=== PATIENT | female | born 1950 | race Caucasian/White ===

== ENCOUNTER 2017-07-23 17:22 | Inpatient (IN) ==
[2017-07-23 17:58] LABS: Bilirubin,Urine Negative (Negative); Blood,Urine Moderate (Negative); Clarity,Urine Clear (Clear); Color,Urine Yellow (Yellow); Glucose,Urine (UA) Normal (Normal); Ketones,Urine Negative (Negative); Leukocyte Esterase,Urine Small (Negative); Nitrite,Urine Negative (Negative); PH,Urine 6.5 pH Units (5.0-8.0); Protein,Urine Negative (Neg-Trace); Specific Gravity,Urine 1.012 (1.010-1.025); Urobilinogen,Urine Normal (Normal)
[2017-07-23 18:00] LABS: Bacteria,Urine None Seen per hpf (None-Few); Hyaline Casts,Urine None Seen per lpf (None-Few); Squamous Epithelial Cell,Urine Many per lpf (None-Few)
[2017-07-23 19:05] LABS: Basophils % 0.1 %; Hematocrit 38.5 % (35.3-44.9); Hemoglobin 13.5 g/dL (11.5-15.4); Immature Granulocytes % 0.5 % (0-4); Immature Platelets 5.4 % (1.1-6.1); Lymphocytes # 1.1 K/mcL (0.6-4.6); Lymphocytes % 7.4 %; Mean Corpuscular HGB Conc 35.1 g/dL (31.6-35.5); Mean Corpuscular Hemoglobin 30.1 pg (28.0-33.3); Mean Corpuscular Volume 85.9 fL (83.0-100.0); Mean Platelet Volume 10.8 fL (9.4-12.4); Monocytes # 0.8 K/mcL (0.0-1.3); Monocytes % 5.1 %; Neutrophils # 13.2 K/mcL (1.6-8.9); Platelet Count 170 K/mcL (140-400); Red Blood Count 4.48 M/mcL (3.82-4.97); Segmented Neutrophils % 86.9 %
[2017-07-23 19:18] LABS: Alanine Aminotransferase 19 Units/L (7-52); Albumin 3.9 g/dL (3.5-5.7); Albumin/Globulin Ratio 1.4 (1.1-2.2); Alkaline Phosphatase 73 Units/L (34-104); Aspartate Amino Transferase 14 Units/L (13-39); BUN/Creatinine Ratio 17 (6-26); Bilirubin,Direct 0.3 mg/dL (0.0-0.2); Bilirubin,Indirect 1.6 mg/dL (0.0-1.2); Bilirubin,Total 1.9 mg/dL (0.3-1.0); Blood Urea Nitrogen 13 mg/dL (8-23); Calcium 9.2 mg/dL (8.6-10.3); Carbon Dioxide 24 mEq/L (23-29); Chloride 98 mEq/L (98-107); Globulin 2.8 g/dL (2.4-3.5); Glucose 120 mg/dL (70-105); Lipase 3 Units/L (11-82); Osmolality,Calculated 277 (280-300); Potassium 3.7 mEq/L (3.5-5.1); Sodium 133 mEq/L (136-145); Total Protein 6.7 g/dL (6.4-8.9); eGFR For African Americans > 60 (> 60); eGFR For Non-African Americans > 60 (> 60)
--- NOTE | 2017-07-23 20:12 | Emergency Department Note ---
Disposition Clinical Impression: Diverticulitis, Perforated diverticulum, Hyperbilirubinemia, Pulmonary nodule Disposition: Admitted As Inpatient Condition: Fair Referrals: Conrado Beck DO [Primary Care Provider] - Forms: ED Satisfaction Letter, Work/School Release General Adult HPI - General Chief complaint: ED Abdominal Pain Stated complaint: abd pain, fever Time Seen by Provider: 07/23/17 19:57 Source: patient Limitations: no limitations Nursing Notes Reviewed: Yes Vital Signs Reviewed: Yes - History of Present Illness HPI Narrative: 66 y/o female w/ PMH of HTN, HLD. Reports 24 hours of suprapubic pain and fever. Admits to increased urinary frequency. Has not had an appetite today. No N/V. Last BM was yesterday and was normal. She reports taking tylenol earlier today which helped quite a bit. She went to an urgent care who sent her here. Movement makes the pain worse. Better after tylenol/rest. Pain was relatively sudden in onset. No flank pain. Radiation: non-radiation Pain Scale: 2 Consistency: constant Associated symptoms: Reports: denies other symptoms Treatments Prior to Arrival: NSAID - Related Data Allergies Allergy/AdvReac Type Severity Reaction Status Date / Time No Known Allergies Allergy Verified 07/23/17 17:39 All systems ED: reviewed and negative except as stated. Constitutional: Reports: fever ENT ED: Denies: throat pain Cardiovascular: Denies: chest pain Respiratory: Denies: cough, dyspnea Gastrointestinal: Reports: abdominal pain. Denies: nausea, vomiting, diarrhea Genitourinary: Reports: frequency Musculoskeletal: Denies: back pain Integumentary: Denies: rash Past Medical History - Past Medical History Medical history: Reports: hyperlipidemia, hypertension Psychiatric history: Reports: no psych history - Social History Smoking Status: Never smoker Smokeless Tobacco Status: No Alcohol use: Reports: none Drug use: Reports: none Physical Exam - General Limitations: no limitations General appearance: alert, in no apparent distress - Head Head exam: atraumatic - Eye Eye exam: Present: normal appearance, PERRL - ENT ENT exam: normal exam, normal oropharynx - Neck Neck exam: Present: normal inspection - Chest Chest inspection: Present: normal inspection - Respiratory Respiratory exam: Present: normal lung sounds bilaterally. Absent: respiratory distress - Cardiovascular Cardiovascular exam: Present: normal rhythm, tachycardia - Abdominal Exam Abdominal exam: Present: soft, tenderness (Diffuse tenderness. Worse in suprapubic area. No rebound.) - Extremities Exam Extremities exam: Present: normal inspection - Neurological Exam Neurological exam: Present: alert, oriented X3 - Psychiatric Psychiatric exam: Present: normal affect, normal mood Course Course Narrative: Due to abdominal pain and fever w/ no clear source, will do CT scan. Will give fluids due to tachycardia. She is very well appearing and in no distress. She walks around the room without significant pain or difficulty. She refuses any need for analgesics. No significant RUQ pain. Microperforation of sigmoid diverticulitis seen on CT scan. Starting antibiotics. Spoke with Dr Lozoya who accepted the patient to her service. Vital Signs Temperature 100.6 F H 07/23/17 17:36 Pulse Rate 108 07/23/17 17:36 Respiratory Rate 18 07/23/17 17:36 Blood Pressure 116/77 07/23/17 17:36 O2 Sat by Pulse Oximetry 95 07/23/17 17:36 Temperature 100.6 F H 07/23/17 17:36 Pulse Rate 95 07/23/17 20:43 Respiratory Rate 16 07/23/17 20:43 Blood Pressure 108/65 07/23/17 20:43 O2 Sat by Pulse Oximetry 95 07/23/17 17:36 Oxygen Delivery Oxygen Delivery Room Air Medical Decision Making - Medical Records Medical records reviewed: Yes I reviewed the patient's medical records. - Lab Data Lab results reviewed: Yes I reviewed the patient's lab results. Result diagrams: 07/23/17 18:57 07/23/17 18:57 Lab Results 07/23/17 07/23/17 07/23/17 Range/Units 17:49 18:57 18:57 WBC 15.2 H (4.3-11.1) K/mcL RBC 4.48 (3.82-4.97) M/mcL Hgb 13.5 (11.5-15.4) g/dL Hct 38.5 (35.3-44.9) % MCV 85.9 (83.0-100.0) fL MCH 30.1 (28.0-33.3) pg MCHC 35.1 (31.6-35.5) g/dL RDW 13.0 (11.5-14.5) % Plt Count 170 (140-400) K/mcL MPV 10.8 (9.4-12.4) fL Immature Gran % 0.5 (0-4) % Seg Neutrophils % 86.9 % Lymphocytes % 7.4 % Monocytes % 5.1 % Eosinophils % 0.0 % Basophils % 0.1 % Neutrophils # 13.2 H (1.6-8.9) K/mcL Lymphocytes # 1.1 (0.6-4.6) K/mcL Monocytes # 0.8 (0.0-1.3) K/mcL Eosinophils # 0.0 (0.0-0.6) K/mcL Basophils # 0.0 (0.0-0.2) K/mcL Immature Plt Fraction 5.4 (1.1-6.1) % Sodium 133 L (136-145) mEq/L Potassium 3.7 (3.5-5.1) mEq/L Chloride 98 (98-107) mEq/L Carbon Dioxide 24 (23-29) mEq/L BUN 13 (8-23) mg/dL Creatinine 0.75 (0.60-1.20) mg/dL Est GFR ( Amer) > 60 (> 60) Est GFR (Non-Af Amer) > 60 (> 60) BUN/Creatinine Ratio 17 (6-26) Glucose 120 H (70-105) mg/dL Calculated Osmolality 277 L (280-300) Calcium 9.2 (8.6-10.3) mg/dL Total Bilirubin 1.9 H (0.3-1.0) mg/dL Direct Bilirubin 0.3 H (0.0-0.2) mg/dL Indirect Bilirubin 1.6 H (0.0-1.2) mg/dL AST 14 (13-39) Units/L ALT 19 (7-52) Units/L Alkaline Phosphatase 73 (34-104) Units/L Serum Total Protein 6.7 (6.4-8.9) g/dL Albumin 3.9 (3.5-5.7) g/dL Globulin 2.8 (2.4-3.5) g/dL Albumin/Globulin Ratio 1.4 (1.1-2.2) Lipase 3 L (11-82) Units/L Urine Color Yellow (Yellow) Urine Clarity Clear (Clear) Urine pH 6.5 (5.0-8.0) pH Units Ur Specific [place] 1.012 (1.010-1.025) Urine Protein Negative (Neg-Trace) mg/dL Urine Glucose (UA) Normal (Normal) mg/dL Urine Ketones Negative (Negative) mg/dL Urine Blood Moderate H (Negative) Urine Nitrite Negative (Negative) Urine Bilirubin Negative (Negative) Urine Urobilinogen Normal (Normal) mg/dL Ur Leukocyte Esterase Small H (Negative) Urine Microscopic RBC 5-15 H (0-3) per hpf Urine Microscopic WBC 5-15 H (0-3) per hpf Ur Squamous Epith Cells Many H (None-Few) per lpf Urine Bacteria None Seen (None-Few) per hpf Hyaline Casts None Seen (None-Few) per lpf Ur Culture Indicated? NO. (NO) - Radiology Data Radiology results reviewed: Yes I reviewed the patient's radiology results.
[2017-07-23] MEDS ORDERED: 0.9 % Sodium Chloride 1,000 ML IVC ONE (20:15)
[2017-07-23] MEDS ORDERED: MetroNIDAZOLE 500 MG/100 ML 500 MG/100 ML BAG IVPB ONE (20:57)
--- NOTE | 2017-07-23 21:12 | Emergency Department Note ---
START Narrative - START START: I examined this patient and my medical decision-making was reviewed with the Resident Physician. I agree with the documented findings, disposition and treatment plan as described except to the extent set forth below. 66 year old female presnts to the eD with copmlaints of suprapubic pain and was seen at the urgent care and tehre was concern for diverticulitis vs kidney stone. PAtine has a fever and elevated WBC of 15. CT confirms perforated diveriticultis. We have admitteed patient to surgery. Pain controlled.
[2017-07-23] MEDS ORDERED: *HR* HYDROmorphone (PF) 1 MG/ML SYRINGE IVP PRN (23:15)
[2017-07-23] MEDS ORDERED: Ondansetron 4 MG/2 ML VIAL IVP PRN (23:16)
[2017-07-24] MEDS: 0.9 % Sodium Chloride 1,000 ML IVC SCH ×3 (00:57→21:20)
--- NOTE | 2017-07-24 09:09 | General Surg History&Physical ---
<Ramone Joiner - Last Filed: 07/24/17 09:04> Date of Encounter: 07/24/17 Time of Encounter: 09:04 Assessment and Plan (1) Perforated diverticulum Current Visit: Yes Status: Acute The assessment and plan as outlined above was discussed with the patient and/or family members who expressed understanding and agreement. All questions were answered. CT abd/pelvis 07/23/16 - Acute sigmoid diverticulitis, with punctate foci of free air scattered in the pelvis, compatible with a microperforation. Medical management for now. Patient is currently stable. Patient was febrile upon admission, but currently afebrile w/ WBC 15.9. - NPO; bowel rest - IV abx (flagyl + cipro day 2) - serial abd exams - IV PPI prophylaxis - Pain control with Rx - Following WBC (2) Pulmonary nodule Current Visit: Yes Status: Acute The assessment and plan as outlined above was discussed with the patient and/or family members who expressed understanding and agreement. All questions were answered. CT abd/pelv 07/23/17 - Noncalcified left lower lobe pulmonary nodules, which measure up to 12 mm in size. A follow-up noncontrast chest CT is recommended. Incidental finding on CT. Currently asymptomatic. Will require outpatient follow up. (3) HTN (hypertension) Current Visit: Yes Status: Acute The assessment and plan as outlined above was discussed with the patient and/or family members who expressed understanding and agreement. All questions were answered. currently stable. Home Rx Valsartan/HCTZ. - closely monitor BP - hydralazine PRN HTN Qualifiers: Qualified Code(s): I10 - Essential (primary) hypertension (4) HLD (hyperlipidemia) Current Visit: Yes Status: Acute The assessment and plan as outlined above was discussed with the patient and/or family members who expressed understanding and agreement. All questions were answered. Currently stable. patient is on bowel rest, hold home statin for now. will restart once diverticulitis is resolved. Qualifiers: Qualified Code(s): E78.5 - Hyperlipidemia, unspecified (5) Obese Current Visit: Yes Status: Acute The assessment and plan as outlined above was discussed with the patient and/or family members who expressed understanding and agreement. All questions were answered. To be managed outpatient by PCP Qualifiers: Qualified Code(s): E66.9 - Obesity, unspecified History of Present Illness Chief complaint: Abd pain HPI: Ms. Salinas is a 66 year old female w/ pmh HTN, HLD, 1 episode of conservatively managed diverticulosis 2 years ago, and previous hysterectomy came to [facility] with a 2 day history of sudden onset of suprapubic pain. Pain is described as achy and at times sharp. She reports pain has gone down "a little bit" overnight. Pain is currently 4/10 in severity. Pain radiates to the anterior surface of her abdomen. Patient has associated fever, nausea, vomiting, and loss of appetite. Patient denies flank pain, chest pain, urinary symptoms, melena, hematochezia, or hematemesis. Patient has previously had one similar episode in her lower left abdomen that was treated elsewhere. At that time she was treated with IVF and abx which resolved her symptoms. Past Med Surg Social Fam HX - Past Medical History Medical history: hyperlipidemia, hypertension Psychiatric history: no psych history - Past Surgical History Surgical History: hysterectomy - Social History Smoking Status: Never smoker Smokeless Tobacco Status: No Alcohol use: none Drug use: none Medications and Allergies Albuterol Sulfate [Proair Hfa] 2 puff IH Q4H PRN 07/23/17 [History] Atorvastatin [Lipitor] 40 mg PO HS 07/23/17 [History] L. Acidophilus/Pectin, [place]armen [Acidophilus Probiotic Capsule] 1 each PO DAILY [History] Mometasone Furoate [Nasonex] 1 spray NS BID PRN 07/23/17 [History] Ranitidine HCl [Zantac] 150 mg PO BID PRN 07/23/17 [History] Valsartan/Hydrochlorothiazide [Diovan Hct 160-25 mg Tablet] 1 each PO DAILY 03/02 [History] 3 Allergy/AdvReac Type Severity Reaction Status Date / Time No Known Allergies Allergy Verified 07/23/17 17:39 Review of Systems All systems PM: A 10-system review of systems was performed and is negative for pertinent findings except as documented above in the HPI. - Constitutional as per HPI - EENT Nose, mouth and throat: as per HPI - Cardiovascular as per HPI - Respiratory as per HPI - Gastrointestinal as per HPI - Genitourinary Genitourinary: as per HPI Menstruation: as per HPI - Musculoskeletal as per HPI - Integumentary as per HPI - Neurological as per HPI - Psychiatric as per HPI - Endocrine as per HPI - Hematologic/Lymphatic as per HPI - Allergic/Immunologic as per HPI General Surgery Exam Initial Vital Signs Temp Pulse Resp BP Pulse Ox 100.6 F H 108 18 116/77 95 07/23/17 17:36 07/23/17 17:36 07/23/17 17:36 07/23/17 17:36 07/23/17 17:36 - General physical appearance well developed, well nourished, moderate distress, moderate pain, obese. negative: jaundice - Eyes normal ocular movement - ENT normal mucosa, no hearing loss, no congestion - Neck no masses, no bruits, no lymphadectomy, no venous distension - Respiratory normal expansion, normal respiratory effort, clear to percussion, clear to auscultation - Cardiovascular Cardiovascular exam: Present: RRR, 15, 16 - Abdomen Abdomen general surgery: Present: bowel sounds present, soft, tender, guarding, surgical scars (suprapubic from hysterectomy healed). Absent: distended, rebound Abdominal Tenderness: Present: suprapubic - Integumentary Integumentary general surgery: Present: warm and dry, no abnormal pigmentation - Psychiatric Psychiatric general surgery: Present: appropriate, oriented to person, oriented to place, oriented to time, speech is normal, memory intact Results - Labs 07/23/17 18:57 07/23/17 18:57 Abnormal lab results WBC 15.2 K/mcL (4.3-11.1) H 07/23/17 18:57 Neutrophils # 13.2 K/mcL (1.6-8.9) H 07/23/17 18:57 Sodium 133 mEq/L (136-145) L 07/23/17 18:57 Glucose 120 mg/dL (70-105) H 07/23/17 18:57 POC Glucose 117 (58-89) H 07/24/17 07:34 Calculated Osmolality 277 (280-300) L 07/23/17 18:57 Total Bilirubin 1.9 mg/dL (0.3-1.0) H 07/23/17 18:57 Direct Bilirubin 0.3 mg/dL (0.0-0.2) H 07/23/17 18:57 Indirect Bilirubin 1.6 mg/dL (0.0-1.2) H 07/23/17 18:57 Lipase 3 Units/L (11-82) L 07/23/17 18:57 Urine Blood Moderate (Negative) H 07/23/17 17:49 Ur Leukocyte Esterase Small (Negative) H 07/23/17 17:49 Urine Microscopic RBC 5-15 per hpf (0-3) H 07/23/17 17:49 Urine Microscopic WBC 5-15 per hpf (0-3) H 07/23/17 17:49 Ur Squamous Epith Cells Many per lpf (None-Few) H 07/23/17 17:49 All other labs normal. <Fernanda Lozoya - Last Filed: 07/24/17 14:34> Date of Encounter: 07/24/17 Assessment and Plan (1) Diverticulitis Current Visit: Yes Status: Acute The assessment and plan as outlined above was discussed with the patient and/or family members who expressed understanding and agreement. All questions were answered. CT scan reviewed by myself antibiotics - cipro/flagyl prn pain control npo, ivf hydration serial abdominal exams gi/dvt prophylaxis will try to get patient over diverticulitis with conservative measures, colonoscopy in ~8 weeks (2) HLD (hyperlipidemia) Current Visit: Yes Status: Chronic The assessment and plan as outlined above was discussed with the patient and/or family members who expressed understanding and agreement. All questions were answered. Qualifiers: Hyperlipidemia type: unspecified Qualified Code(s): E78.5 - Hyperlipidemia , unspecified (3) HTN (hypertension) Current Visit: Yes Status: Chronic The assessment and plan as outlined above was discussed with the patient and/or family members who expressed understanding and agreement. All questions were answered. start iv hctz, monitor Qualifiers: Hypertension type: essential hypertension Qualified Code(s): I10 - Essential (primary) hypertension (4) Perforated diverticulum Current Visit: Yes Status: Acute The assessment and plan as outlined above was discussed with the patient and/or family members who expressed understanding and agreement. All questions were answered. as per carrie tracey (5) Pulmonary nodule Current Visit: Yes Status: Chronic The assessment and plan as outlined above was discussed with the patient and/or family members who expressed understanding and agreement. All questions were answered. will have patient follow up with pulmonary as outpatient to establish care (6) Leukocytosis Current Visit: Yes Status: Resolved The assessment and plan as outlined above was discussed with the patient and/or family members who expressed understanding and agreement. All questions were answered. elevated wbc upon admission but wnl today, [facility] Qualifiers: Leukocytosis type: unspecified Qualified Code(s): D72.829 - Elevated white blood cell count, unspecified History of Present Illness HPI: Ms. Salinas is a 66 year old female with a 2 day history of sharp and constant LLQ and suprapubic pain. She has had similar pain in the past about 5 years ago and was treated as an outpatient by her PCP for diverticulitis. She denies diarrhea. No fevers chills or night sweats. She has a little improvement in her pain since last night. No nausea or emesis. Past Med Surg Social Fam HX - Past Medical History Source: patient Medical history: GERD - Past Surgical History Surgical History: other ([id number] x 2 (last 2-3 years ago/diverticulosis)) Review of Systems All systems PM: reviewed and no additional remarkable complaints except as stated All systems PM: A 10-system review of systems was performed and is negative for pertinent findings except as documented above in the HPI. General Surgery Exam Initial Vital Signs Temp Pulse Resp BP Pulse Ox 100.6 F H 108 18 116/77 95 07/23/17 17:36 07/23/17 17:36 07/23/17 17:36 07/23/17 17:36 07/23/17 17:36 - General physical appearance well developed, well nourished, no distress - Eyes PERRL, normal ocular movement - ENT normal mucosa, normocephalic - Neck trachea midline - Respiratory normal expansion, normal respiratory effort - Cardiovascular Cardiovascular exam: Present: RRR - Abdomen Abdomen general surgery: Present: soft, tender. Absent: guarding Abdominal Tenderness: Present: LLQ, suprapubic - Integumentary Integumentary general surgery: Present: warm and dry, no abnormal pigmentation - Neurologic Present: CN 2-12 grossly intact - Musculoskeletal Present: normal posture - Psychiatric Psychiatric general surgery: Present: A&Ox3, speech is normal Results - Labs 07/24/17 09:25 07/24/17 09:25 Abnormal lab results RBC 3.80 M/mcL (3.82-4.97) L 07/24/17 09:25 Hgb 11.4 g/dL (11.5-15.4) L D 07/24/17 09:25 Hct 33.5 % (35.3-44.9) L 07/24/17 09:25 Plt Count 139 K/mcL (140-400) L 07/24/17 09:25 Neutrophils # 9.2 K/mcL (1.6-8.9) H 07/24/17 09:25 Creatinine 0.57 mg/dL (0.60-1.20) L 07/24/17 09:25 Glucose 108 mg/dL (70-105) H 07/24/17 09:25 POC Glucose 105 (58-89) H 07/24/17 11:06 Calcium 8.2 mg/dL (8.6-10.3) L 07/24/17 09:25 Total Bilirubin 1.9 mg/dL (0.3-1.0) H 07/23/17 18:57 Direct Bilirubin 0.3 mg/dL (0.0-0.2) H 07/23/17 18:57 Indirect Bilirubin 1.6 mg/dL (0.0-1.2) H 07/23/17 18:57 Lipase 3 Units/L (11-82) L 07/23/17 18:57 Urine Blood Moderate (Negative) H 07/23/17 17:49 Ur Leukocyte Esterase Small (Negative) H 07/23/17 17:49 Urine Microscopic RBC 5-15 per hpf (0-3) H 07/23/17 17:49 Urine Microscopic WBC 5-15 per hpf (0-3) H 07/23/17 17:49 Ur Squamous Epith Cells Many per lpf (None-Few) H 07/23/17 17:49 Diabetes panel 07/24/17 Range/Units 09:25 Sodium 137 (136-145) mEq/L Potassium 3.5 (3.5-5.1) mEq/L Chloride 106 (98-107) mEq/L Carbon Dioxide 23 (23-29) mEq/L BUN 11 (8-23) mg/dL Creatinine 0.57 L (0.60-1.20) mg/dL Glucose 108 H (70-105) mg/dL Calcium 8.2 L (8.6-10.3) mg/dL Calcium panel 07/24/17 Range/Units 09:25 Calcium 8.2 L (8.6-10.3) mg/dL Pituitary panel 07/24/17 Range/Units 09:25 Sodium 137 (136-145) mEq/L Potassium 3.5 (3.5-5.1) mEq/L Chloride 106 (98-107) mEq/L Carbon Dioxide 23 (23-29) mEq/L BUN 11 (8-23) mg/dL Creatinine 0.57 L (0.60-1.20) mg/dL Glucose 108 H (70-105) mg/dL Calcium 8.2 L (8.6-10.3) mg/dL Adrenal panel 07/24/17 Range/Units 09:25 Sodium 137 (136-145) mEq/L Potassium 3.5 (3.5-5.1) mEq/L Chloride 106 (98-107) mEq/L Carbon Dioxide 23 (23-29) mEq/L BUN 11 (8-23) mg/dL Creatinine 0.57 L (0.60-1.20) mg/dL Glucose 108 H (70-105) mg/dL Calcium 8.2 L (8.6-10.3) mg/dL All other labs normal. - Imaging CT scan - abdomen: report reviewed, image reviewed CT scan - pelvis: report reviewed, image reviewed - Attending Attestation I examined this patient and my medical decision-making was reviewed with the Resident Physician. I agree with the documented findings, disposition and treatment plan as described except to the extent set forth below.
[2017-07-24] MEDS ORDERED: *HR* Metoprolol 5 MG/5 ML VIAL IVP PRN (09:13)
[2017-07-24] MEDS ORDERED: *HR* Promethazine 25 MG/ML VIAL IVP PRN (09:13)
[2017-07-24] MEDS ORDERED: Naloxone 0.4 MG/ML INJ IVP PRN (09:13)
[2017-07-24] MEDS ORDERED: MetroNIDAZOLE 500 MG/100 ML 500 MG/100 ML BAG IVPB SCH (10:00)
[2017-07-24 10:05] LABS: Basophils % 0.1 %; Eosinophils % 0.2 %; Hematocrit 33.5 % (35.3-44.9); Immature Granulocytes % 0.5 % (0-4); Lymphocytes # 0.7 K/mcL (0.6-4.6); Lymphocytes % 6.4 %; Mean Corpuscular Volume 88.2 fL (83.0-100.0); Mean Platelet Volume 11.1 fL (9.4-12.4); Monocytes # 0.6 K/mcL (0.0-1.3); Neutrophils # 9.2 K/mcL (1.6-8.9); Platelet Count 139 K/mcL (140-400); Red Cell Distribution Width 13.2 % (11.5-14.5); Segmented Neutrophils % 86.8 %
[2017-07-24] MEDS: Pantoprazole 40 MG VIAL IVP SCH (10:05)
[2017-07-24] MEDS: *HR* Heparin 5,000 UNIT/ML VIAL SQ SCH ×2 (10:06→21:23)
[2017-07-24] MEDS: *HR* HYDROmorphone (PF) 1 MG/ML SYRINGE IVP PRN ×2 (10:06→23:23)
[2017-07-24 10:07] LABS: Hemoglobin 11.4 g/dL (11.5-15.4)
[2017-07-24 11:00] LABS: BUN/Creatinine Ratio 19 (6-26); Blood Urea Nitrogen 11 mg/dL (8-23); Calcium 8.2 mg/dL (8.6-10.3); Carbon Dioxide 23 mEq/L (23-29); Chloride 106 mEq/L (98-107); Glucose 108 mg/dL (70-105); Osmolality,Calculated 284 (280-300); Potassium 3.5 mEq/L (3.5-5.1); Sodium 137 mEq/L (136-145); eGFR For African Americans > 60 (> 60); eGFR For Non-African Americans > 60 (> 60)
[2017-07-25] MEDS: *HR* HYDROmorphone (PF) 1 MG/ML SYRINGE IVP PRN (06:59)
[2017-07-25 07:05] LABS: BUN/Creatinine Ratio 21 (6-26); Blood Urea Nitrogen 11 mg/dL (8-23); Calcium 8.3 mg/dL (8.6-10.3); Carbon Dioxide 22 mEq/L (23-29); Chloride 108 mEq/L (98-107); Glucose 90 mg/dL (70-105); Magnesium 1.9 mg/dL (1.6-2.6); Osmolality,Calculated 283 (280-300); Phosphorous 1.7 mg/dL (2.7-4.5); Potassium 3.6 mEq/L (3.5-5.1); Sodium 137 mEq/L (136-145); eGFR For African Americans > 60 (> 60); eGFR For Non-African Americans > 60 (> 60)
[2017-07-25 07:16] LABS: Basophils % 0.1 %; Eosinophils # 0.1 K/mcL (0.0-0.6); Eosinophils % 0.6 %; Hematocrit 33.6 % (35.3-44.9); Hemoglobin 11.1 g/dL (11.5-15.4); Immature Granulocytes % 0.4 % (0-4); Lymphocytes % 10.6 %; Mean Corpuscular Hemoglobin 29.8 pg (28.0-33.3); Mean Corpuscular Volume 90.3 fL (83.0-100.0); Mean Platelet Volume 11.1 fL (9.4-12.4); Monocytes # 0.6 K/mcL (0.0-1.3); Monocytes % 6.3 %; Platelet Count 137 K/mcL (140-400); Red Blood Count 3.72 M/mcL (3.82-4.97); Red Cell Distribution Width 13.4 % (11.5-14.5)
[2017-07-25] MEDS: *HR* Heparin 5,000 UNIT/ML VIAL SQ SCH ×2 (08:40→17:20)
--- NOTE | 2017-07-25 08:54 | General Surgery Progress Note ---
<Antoinette Knox - Last Filed: 07/25/17 11:46> Date of Encounter: 07/25/17 Time of Encounter: 08:40 - Assessment and Plan (1) Perforated diverticulum Current Visit: Yes Status: Acute Patient reported that abdominal pain has improved but is still present. She admitted to nausea and bowel movement this morning. Abdominal exam was soft, suprapubic tenderness, involuntary guarding. Decreased bowel sounds. No rebound. Afebrile, WBC 9.[address] Abd/pelvis 07/23/2016 demonstrated acute sigmoid diverticulitis with punctate foci of free air in pelvis compatible with a microperforation. Small pelvis free fluid, no abscess. NPO except ice chips continue abx cipro and flagyl day 3 protonix zofran & phenergan serial abdominal exams toradol and dilaudid for break through pain (2) Pulmonary nodule Current Visit: Yes Status: Chronic CT abd/ pelvis demonstrated Noncalcified left lower lobe pulmonary nodules, which measure up to 12 mm in size. A follow-up noncontrast chest CT is recommended. Incidental finding on CT. Currently asymptomatic. 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 (3) HTN (hypertension) Current Visit: Yes Status: Chronic stable. hydralazine prn continue to monitor restart home BP once diverticulits has resolved Qualifiers: Hypertension type: essential hypertension Qualified Code(s): I10 - Essential (primary) hypertension (4) HLD (hyperlipidemia) Current Visit: Yes Status: Chronic holding home statin due to bowel rest and may be restarted once diverticulitis resolved. Qualifiers: Hyperlipidemia type: unspecified Qualified Code(s): E78.5 - Hyperlipidemia , unspecified (5) Obese Current Visit: Yes Status: Acute to be managed outpatient by PCP Qualifiers: Body mass index: BMI 36.0-36.9 Qualified Code(s): E66.9 - Obesity, unspecified; Z68.36 - Body mass index (BMI) 36.0-36.9, adult; Z68.36 - Body mass index (BMI) 36.0-36.9, adult Subjective Patient reports: still having pain, pain is less, bowel movement, nausea Narrative: She reports that she is still having suprapubic abdominal pain but it has improved some. Earlier she felt like she had some abdominal pressure and nausea. She requested something else for pain besides dilaudid such as tylenol. She had a bowel movement this morning. she does not feel like eating. Objective Vital Signs - Last 8 Hours Temp Pulse Resp BP Pulse Ox 07/25/17 04:00 99.3 F 103 15 104/63 96 Intake and Output 07/24/17 07/25/17 07/25/17 23:59 07:59 15:59 Intake Total 1000 / 1000 0 / 0 Output Total 0 / 0 200 / 200 Balance 1000 / 1000 -200 / -200 Intake: IV Fluids 1000 / 1000 0.9 % Sodium Chloride 1,000 ML 1000 / 1000 @ 125 mls/hr IVC .Q8H [facility] Rx#: [id number] Oral 0 / 0 0 / 0 Output: Urine 0 / 0 200 / 200 Other: Weight 84 kg Blood Glucose* 80 95 Patient Weight 07/25/17 23:59 Weight 84 kg - General physical appearance well developed, well nourished, no distress - Eyes normal ocular movement - ENT normal nares - Respiratory normal expansion, normal respiratory effort, clear to auscultation - Cardiovascular Cardiovascular exam: Present: RRR - Abdomen Abdomen: Present: bowel sounds present (decreased), soft, tender, guarding. Absent: rebound Abdominal Tenderness: suprapubic - Psychiatric oriented to time, oriented to person, oriented to place - Labs 07/25/17 06:23 07/25/17 06:23 Diabetes panel 07/25/17 Range/Units 06:23 Sodium 137 (136-145) mEq/L Potassium 3.6 (3.5-5.1) mEq/L Chloride 108 H (98-107) mEq/L Carbon Dioxide 22 L (23-29) mEq/L BUN 11 (8-23) mg/dL Creatinine 0.52 L (0.60-1.20) mg/dL Glucose 90 (70-105) mg/dL Calcium 8.3 L (8.6-10.3) mg/dL Calcium panel 07/25/17 Range/Units 06:23 Calcium 8.3 L (8.6-10.3) mg/dL Phosphorus 1.7 L (2.7-4.5) mg/dL Pituitary panel 07/25/17 Range/Units 06:23 Sodium 137 (136-145) mEq/L Potassium 3.6 (3.5-5.1) mEq/L Chloride 108 H (98-107) mEq/L Carbon Dioxide 22 L (23-29) mEq/L BUN 11 (8-23) mg/dL Creatinine 0.52 L (0.60-1.20) mg/dL Glucose 90 (70-105) mg/dL Calcium 8.3 L (8.6-10.3) mg/dL Adrenal panel 07/25/17 Range/Units 06:23 Sodium 137 (136-145) mEq/L Potassium 3.6 (3.5-5.1) mEq/L Chloride 108 H (98-107) mEq/L Carbon Dioxide 22 L (23-29) mEq/L BUN 11 (8-23) mg/dL Creatinine 0.52 L (0.60-1.20) mg/dL Glucose 90 (70-105) mg/dL Calcium 8.3 L (8.6-10.3) mg/dL Consult Discharge Plan - Plan Referrals: Conrado Beck DO [Primary Care Provider] - Li Silva MD [Partnered Physician] - (needs follow up several weeks after discharge to establish care to follow left lower lobe pulmonary nodule) <Fernanda Lozoya - Last Filed: 07/26/17 09:15> Date of Encounter: 07/25/17 - Assessment and Plan (1) Diverticulitis Current Visit: Yes Status: Acute (2) HLD (hyperlipidemia) Current Visit: Yes Status: Chronic Qualifiers: Hyperlipidemia type: unspecified Qualified Code(s): E78.5 - Hyperlipidemia , unspecified (3) HTN (hypertension) Current Visit: Yes Status: Chronic Qualifiers: Hypertension type: essential hypertension Qualified Code(s): I10 - Essential (primary) hypertension (4) Perforated diverticulum Current Visit: Yes Status: Acute patient with continued but improved LLQ and suprapubic pain, despite what resident documents patient has no guarding whatsoever and her abdomen is soft she is still too tender to start a diet, continue ice chips continue abx prn pain control which she is using sparingly OOB to chair and ambulating gi/dvt prophylaxis serial abdominal exams (5) Pulmonary nodule Current Visit: Yes Status: Chronic Subjective Patient reports: no new complaints, feels better, still having pain, pain is less, voiding w/o difficulty, flatus, bowel movement Objective Vital Signs - Last 8 Hours Temp Pulse Resp BP Pulse Ox 07/26/17 06:33 98.1 F 109 16 125/71 97 07/26/17 03:18 97.9 F 88 16 107/68 98 Intake and Output 07/25/17 07/26/17 07/26/17 23:59 07:59 15:59 Intake Total 300 / 300 100 / 100 100 / 100 Output Total 100 / 100 200 / 200 Balance 200 / 200 -100 / -100 100 / 100 Intake: IV Fluids 300 / 300 100 / 100 100 / 100 Cipro Premix 400 MG/200 ML 400 200 / 200 mg In 200 ml @ 200 mls/hr IVPB Q12H [facility] Rx#:[id number] Flagyl Premix 500 MG/100 ML 500 100 / 100 100 / 100 100 / 100 mg In 100 ml @ 100 mls/hr IVPB Q6H [facility] Rx#:[id number] Oral 0 / 0 Output: Urine 100 / 100 200 / 200 Other: Meal NPO Percent of Meal Consumed 0% # Bowel Movements 0 Weight 84.2 kg Blood Glucose* 81 96 Patient Weight 07/26/17 23:59 Weight 84.2 kg - General physical appearance well developed, well nourished, no distress, obese - Eyes PERRL, normal ocular movement - ENT normal mucosa, normocephalic - Neck Neck exam: trachea midline - Respiratory normal expansion, normal respiratory effort - Cardiovascular Cardiovascular exam: Present: RRR - Abdomen Abdomen: Present: soft, tender. Absent: guarding Abdominal Tenderness: LLQ, suprapubic - Integumentary no rash, no growths - Neurologic CN 2-12 grossly intact, normal sensation - Musculoskeletal normal posture - Psychiatric oriented to time, oriented to person, oriented to place, speech is normal - Labs 07/26/17 05:35 07/26/17 05:35 Diabetes panel 07/26/17 Range/Units 05:35 Sodium 140 (136-145) mEq/L Potassium 3.2 L (3.5-5.1) mEq/L Chloride 112 H (98-107) mEq/L Carbon Dioxide 20 L (23-29) mEq/L BUN 16 (8-23) mg/dL Creatinine 0.49 L (0.60-1.20) mg/dL Glucose 80 (70-105) mg/dL Calcium 8.0 L (8.6-10.3) mg/dL Calcium panel 07/26/17 07/26/17 Range/Units 05:35 05:35 Calcium 8.0 L (8.6-10.3) mg/dL Phosphorus 2.3 L (2.7-4.5) mg/dL Pituitary panel 07/26/17 Range/Units 05:35 Sodium 140 (136-145) mEq/L Potassium 3.2 L (3.5-5.1) mEq/L Chloride 112 H (98-107) mEq/L Carbon Dioxide 20 L (23-29) mEq/L BUN 16 (8-23) mg/dL Creatinine 0.49 L (0.60-1.20) mg/dL Glucose 80 (70-105) mg/dL Calcium 8.0 L (8.6-10.3) mg/dL Adrenal panel 07/26/17 Range/Units 05:35 Sodium 140 (136-145) mEq/L Potassium 3.2 L (3.5-5.1) mEq/L Chloride 112 H (98-107) mEq/L Carbon Dioxide 20 L (23-29) mEq/L BUN 16 (8-23) mg/dL Creatinine 0.49 L (0.60-1.20) mg/dL Glucose 80 (70-105) mg/dL Calcium 8.0 L (8.6-10.3) mg/dL - Attending Attestation I examined this patient and my medical decision-making was reviewed with the Resident Physician. I agree with the documented findings, disposition and treatment plan as described except to the extent set forth below.
[2017-07-25] MEDS: 0.9 % Sodium Chloride 1,000 ML IVC SCH ×3 (09:49→17:18)
[2017-07-25] MEDS: Pantoprazole 40 MG VIAL IVP SCH (09:49)
[2017-07-25] MEDS: Ketorolac 15 MG/ML VIAL IVP SCH ×2 (12:58→17:26)
[2017-07-25] MEDS: MetroNIDAZOLE 500 MG/100 ML 500 MG/100 ML BAG IVPB SCH ×2 (12:58→17:17)
[2017-07-26] MEDS: MetroNIDAZOLE 500 MG/100 ML 500 MG/100 ML BAG IVPB SCH ×5 (00:25→23:26)
[2017-07-26] MEDS: Ketorolac 15 MG/ML VIAL IVP SCH ×5 (00:25→23:30)
[2017-07-26 05:48] LABS: Basophils % 0.3 %; Eosinophils # 0.2 K/mcL (0.0-0.6); Eosinophils % 3.1 %; Hematocrit 29.8 % (35.3-44.9); Immature Granulocytes % 0.3 % (0-4); Lymphocytes # 0.8 K/mcL (0.6-4.6); Lymphocytes % 11.5 %; Mean Corpuscular HGB Conc 33.6 g/dL (31.6-35.5); Mean Corpuscular Hemoglobin 29.5 pg (28.0-33.3); Mean Corpuscular Volume 87.9 fL (83.0-100.0); Mean Platelet Volume 10.9 fL (9.4-12.4); Monocytes # 0.5 K/mcL (0.0-1.3); Monocytes % 7.4 %; Platelet Count 148 K/mcL (140-400); Red Blood Count 3.39 M/mcL (3.82-4.97); Red Cell Distribution Width 13.4 % (11.5-14.5); Segmented Neutrophils % 77.4 %
[2017-07-26] MEDS: *HR* Heparin 5,000 UNIT/ML VIAL SQ SCH ×2 (06:01→17:17)
[2017-07-26 06:07] LABS: BUN/Creatinine Ratio 33 (6-26); Blood Urea Nitrogen 16 mg/dL (8-23); Carbon Dioxide 20 mEq/L (23-29); Chloride 112 mEq/L (98-107); Glucose 80 mg/dL (70-105); Osmolality,Calculated 290 (280-300); Potassium 3.2 mEq/L (3.5-5.1); Sodium 140 mEq/L (136-145); eGFR For African Americans > 60 (> 60); eGFR For Non-African Americans > 60 (> 60)
[2017-07-26] MEDS: 0.9 % Sodium Chloride 1,000 ML IVC SCH (06:51)
[2017-07-26] MEDS: Pantoprazole 40 MG VIAL IVP SCH (08:10)
[2017-07-26] MEDS ORDERED: 0.9 % Sodium Chloride 1,000 ML IVC SCH (10:41)
--- NOTE | 2017-07-26 10:49 | General Surgery Progress Note ---
<Comfort Camp - Last Filed: 07/26/17 10:42> Date of Encounter: 07/26/17 Time of Encounter: 10:00 - Assessment and Plan (1) Perforated diverticulum Current Visit: Yes Status: Acute Her abdominal exam is benign today. Patient states she feels "so much better." She requests something to drink. Her white blood cell count is normal. Plan: 1. Trial clear liquid diet; if she tolerates clear liquid diet without nausea, vomiting, or abdominal pain will consider advancing to full liquid diet for dinner. 2. Decreased IV fluids to KVO 3. Serial abdominal exams 4. Continue supportive care and discomfort management 5. Continue IV antibiotics. 6. Continued G.I. and DVT prophylaxis 7. Ambulate and holds at least TID and incentive spirometry 10 times Q hour while awake 8. Replace electrolytes as indicated (2) Hypokalemia Current Visit: Yes Status: Acute Replace electrolytes as indicated. Repeat a.m. labs. (3) Pulmonary nodule Current Visit: Yes Status: Chronic Follow-up with pulmonology as an outpatient (4) HTN (hypertension) Current Visit: Yes Status: Chronic Continue current medication Qualifiers: Hypertension type: essential hypertension Qualified Code(s): I10 - Essential (primary) hypertension (5) HLD (hyperlipidemia) Current Visit: Yes Status: Chronic Qualifiers: Hyperlipidemia type: unspecified Qualified Code(s): E78.5 - Hyperlipidemia , unspecified Subjective Patient reports: no new complaints, feels better, pain is less, voiding w/o difficulty, flatus, bowel movement, afebrile Narrative: Dory states, "I feel so so much better." Objective Vital Signs - Last 8 Hours Temp Pulse Resp BP Pulse Ox 07/26/17 06:33 98.1 F 109 16 125/71 97 07/26/17 03:18 97.9 F 88 16 107/68 98 Intake and Output 07/25/17 07/26/17 07/26/17 23:59 07:59 15:59 Intake Total 300 / 300 100 / 100 100 / 100 Output Total 100 / 100 200 / 200 Balance 200 / 200 -100 / -100 100 / 100 Intake: IV Fluids 300 / 300 100 / 100 100 / 100 Cipro Premix 400 MG/200 ML 400 200 / 200 mg In 200 ml @ 200 mls/hr IVPB Q12H [facility] Rx#:[id number] Flagyl Premix 500 MG/100 ML 500 100 / 100 100 / 100 100 / 100 mg In 100 ml @ 100 mls/hr IVPB Q6H [facility] Rx#:[id number] Oral 0 / 0 Output: Urine 100 / 100 200 / 200 Other: Meal NPO Percent of Meal Consumed 0% # Bowel Movements 0 Weight 84.2 kg Blood Glucose* 81 96 Patient Weight 07/26/17 23:59 Weight 84.2 kg - General physical appearance well nourished, no distress, no pain - Eyes normal ocular movement - ENT atraumatic, normocephalic - Neck Neck exam: trachea midline, no venous distension - Respiratory normal expansion, normal respiratory effort, clear to auscultation - Cardiovascular Cardiovascular exam: Present: RRR - Abdomen Abdomen: Present: bowel sounds present, soft, non tender Hernia: none - Integumentary no growths, no abnormal pigmentation - Neurologic normal coordination, normal sensation - Musculoskeletal normal gait, normal posture - Psychiatric oriented to time, oriented to person, oriented to place, speech is normal, memory intact - Labs 07/26/17 05:35 07/26/17 05:35 Diabetes panel 07/26/17 Range/Units 05:35 Sodium 140 (136-145) mEq/L Potassium 3.2 L (3.5-5.1) mEq/L Chloride 112 H (98-107) mEq/L Carbon Dioxide 20 L (23-29) mEq/L BUN 16 (8-23) mg/dL Creatinine 0.49 L (0.60-1.20) mg/dL Glucose 80 (70-105) mg/dL Calcium 8.0 L (8.6-10.3) mg/dL Calcium panel 07/26/17 07/26/17 Range/Units 05:35 05:35 Calcium 8.0 L (8.6-10.3) mg/dL Phosphorus 2.3 L (2.7-4.5) mg/dL Pituitary panel 07/26/17 Range/Units 05:35 Sodium 140 (136-145) mEq/L Potassium 3.2 L (3.5-5.1) mEq/L Chloride 112 H (98-107) mEq/L Carbon Dioxide 20 L (23-29) mEq/L BUN 16 (8-23) mg/dL Creatinine 0.49 L (0.60-1.20) mg/dL Glucose 80 (70-105) mg/dL Calcium 8.0 L (8.6-10.3) mg/dL Adrenal panel 07/26/17 Range/Units 05:35 Sodium 140 (136-145) mEq/L Potassium 3.2 L (3.5-5.1) mEq/L Chloride 112 H (98-107) mEq/L Carbon Dioxide 20 L (23-29) mEq/L BUN 16 (8-23) mg/dL Creatinine 0.49 L (0.60-1.20) mg/dL Glucose 80 (70-105) mg/dL Calcium 8.0 L (8.6-10.3) mg/dL Consult Discharge Plan - Plan Referrals: Li Silva MD [Partnered Physician] - (needs follow up several weeks after discharge to establish care to follow left lower lobe pulmonary nodule) Conrado Beck, [Primary Care Provider] - <Fernanda Lozoya - Last Filed: 07/26/17 16:47> Date of Encounter: 07/26/17 Time of Encounter: 16:44 - Assessment and Plan (1) Diverticulitis Current Visit: Yes Status: Acute (2) HLD (hyperlipidemia) Current Visit: Yes Status: Chronic Qualifiers: Hyperlipidemia type: unspecified Qualified Code(s): E78.5 - Hyperlipidemia , unspecified (3) HTN (hypertension) Current Visit: Yes Status: Chronic restarted home medication, stop iv hydralazine Qualifiers: Hypertension type: essential hypertension Qualified Code(s): I10 - Essential (primary) hypertension (4) Perforated diverticulum Current Visit: Yes Status: Acute tolerating clears, asked to have pain medication decreased decreased ivf hydration continue abx gi/dvt prophylaxis ok to shower (5) Pulmonary nodule Current Visit: Yes Status: Chronic (6) Hypophosphatemia Current Visit: Yes Status: Acute replaced (7) Hypokalemia Current Visit: Yes Status: Acute Subjective Patient reports: feels better, pain is less, tolerating liquids well, voiding w/ o difficulty, flatus, bowel movement Objective Vital Signs - Last 8 Hours Temp Pulse Resp BP Pulse Ox 07/26/17 15:15 98.8 F 93 16 113/73 97 07/26/17 10:43 98.5 F 87 16 113/68 95 Intake and Output 07/26/17 07/26/17 07/26/17 07:59 15:59 23:59 Intake Total 100 / 100 540 / 540 Output Total 200 / 200 0 / 0 Balance -100 / -100 540 / 540 Intake: IV Fluids 100 / 100 300 / 300 Cipro Premix 400 MG/200 ML 400 200 / 200 mg In 200 ml @ 200 mls/hr IVPB Q12H [facility] Rx#:[id number] Flagyl Premix 500 MG/100 ML 500 100 / 100 100 / 100 mg In 100 ml @ 100 mls/hr IVPB Q6H [facility] Rx#:[id number] Oral 240 / 240 Output: Urine 200 / 200 0 / 0 Other: Meal Clear # Bowel Movements 0 0 Weight 84.2 kg Blood Glucose* 96 Patient Weight 07/26/17 23:59 Weight 84.2 kg - General physical appearance well developed, well nourished, no distress, no pain - Eyes PERRL, normal ocular movement - ENT normal mucosa, normocephalic - Neck Neck exam: trachea midline - Respiratory normal expansion, normal respiratory effort - Cardiovascular Cardiovascular exam: Present: RRR - Abdomen Abdomen: Present: soft, non tender. Absent: distended, guarding, rebound - Integumentary no growths, no abnormal pigmentation - Neurologic normal coordination - Musculoskeletal normal posture - Psychiatric oriented to time, oriented to person, oriented to place, speech is normal, memory intact - Labs 07/26/17 05:35 07/26/17 05:35 Diabetes panel 07/26/17 Range/Units 05:35 Sodium 140 (136-145) mEq/L Potassium 3.2 L (3.5-5.1) mEq/L Chloride 112 H (98-107) mEq/L Carbon Dioxide 20 L (23-29) mEq/L BUN 16 (8-23) mg/dL Creatinine 0.49 L (0.60-1.20) mg/dL Glucose 80 (70-105) mg/dL Calcium 8.0 L (8.6-10.3) mg/dL Calcium panel 07/26/17 07/26/17 Range/Units 05:35 05:35 Calcium 8.0 L (8.6-10.3) mg/dL Phosphorus 2.3 L (2.7-4.5) mg/dL Pituitary panel 07/26/17 Range/Units 05:35 Sodium 140 (136-145) mEq/L Potassium 3.2 L (3.5-5.1) mEq/L Chloride 112 H (98-107) mEq/L Carbon Dioxide 20 L (23-29) mEq/L BUN 16 (8-23) mg/dL Creatinine 0.49 L (0.60-1.20) mg/dL Glucose 80 (70-105) mg/dL Calcium 8.0 L (8.6-10.3) mg/dL Adrenal panel 07/26/17 Range/Units 05:35 Sodium 140 (136-145) mEq/L Potassium 3.2 L (3.5-5.1) mEq/L Chloride 112 H (98-107) mEq/L Carbon Dioxide 20 L (23-29) mEq/L BUN 16 (8-23) mg/dL Creatinine 0.49 L (0.60-1.20) mg/dL Glucose 80 (70-105) mg/dL Calcium 8.0 L (8.6-10.3) mg/dL - Attending Attestation I have personally performed a face to face evaluation on this patient. I have reviewed and agree with the care plan. History and Exam by me shows:
[2017-07-26] MEDS ORDERED: Potassium Chloride 20 MEQ, Lidocaine 1% 2 ML in D5% in Water 250 ML IVPB ONE (10:54)
[2017-07-26] MEDS ORDERED: Potassium Phosphate 44 MEQ in 0.9 % Sodium Chloride 250 ML IVPB ONE (13:10)
[2017-07-26] MEDS: hydroCHLOROthiazide 25 MG TABLET PO SCH (13:15)
[2017-07-26] MEDS: Valsartan 160 MG TABLET PO SCH (13:15)
[2017-07-26] MEDS ORDERED: *HR* HYDROmorphone (PF) 1 MG/ML SYRINGE IVP PRN (16:44)
[2017-07-27 05:27] LABS: Basophils % 0.2 %; Eosinophils # 0.2 K/mcL (0.0-0.6); Eosinophils % 3.8 %; Hematocrit 29.9 % (35.3-44.9); Hemoglobin 9.9 g/dL (11.5-15.4); Immature Granulocytes % 0.7 % (0-4); Lymphocytes % 16.5 %; Mean Corpuscular HGB Conc 33.1 g/dL (31.6-35.5); Mean Corpuscular Hemoglobin 29.7 pg (28.0-33.3); Mean Corpuscular Volume 89.8 fL (83.0-100.0); Mean Platelet Volume 10.7 fL (9.4-12.4); Monocytes # 0.5 K/mcL (0.0-1.3); Monocytes % 8.8 %; Neutrophils # 4.3 K/mcL (1.6-8.9); Nucleated Red Blood Cells 0.3 /100 WBC (0); Platelet Count 187 K/mcL (140-400); Red Blood Count 3.33 M/mcL (3.82-4.97); Red Cell Distribution Width 13.8 % (11.5-14.5)
[2017-07-27] MEDS: *HR* Heparin 5,000 UNIT/ML VIAL SQ SCH (05:40)
[2017-07-27 05:43] LABS: BUN/Creatinine Ratio 26 (6-26); Blood Urea Nitrogen 15 mg/dL (8-23); Calcium 8.1 mg/dL (8.6-10.3); Carbon Dioxide 22 mEq/L (23-29); Chloride 110 mEq/L (98-107); Glucose 95 mg/dL (70-105); Magnesium 1.8 mg/dL (1.6-2.6); Osmolality,Calculated 287 (280-300); Phosphorous 2.1 mg/dL (2.7-4.5); Potassium 3.6 mEq/L (3.5-5.1); Sodium 138 mEq/L (136-145); eGFR For African Americans > 60 (> 60); eGFR For Non-African Americans > 60 (> 60)
[2017-07-27] MEDS: MetroNIDAZOLE 500 MG/100 ML 500 MG/100 ML BAG IVPB SCH (05:43)
[2017-07-27] MEDS: Ketorolac 15 MG/ML VIAL IVP SCH (05:46)
[2017-07-27 07:16] VITALS: BP 113/70
[2017-07-27] MEDS: hydroCHLOROthiazide 25 MG TABLET PO SCH (09:26)
[2017-07-27] MEDS: Valsartan 160 MG TABLET PO SCH (09:27)
[2017-07-27] MEDS: Pantoprazole 40 MG VIAL IVP SCH (09:27)
--- NOTE | 2017-07-27 10:16 | General Surgery Progress Note ---
<Ramone Joiner - Last Filed: 07/27/17 10:11> Date of Encounter: 07/27/17 Time of Encounter: 10:11 - Assessment and Plan (1) Perforated diverticulum Status: Acute Patient is clinically improving with no abdominal pain, and hemodynamically stable. Patient tolerated clear liquid diet yesterday w/o n/v/abd pain. Plan: 1. Trial full liquid diet; if she tolerates clear liquid diet without nausea, vomiting, or abdominal pain will consider advancing to soft diet for dinner. 2. Decreased IV fluids to KVO 3. Serial abdominal exams 4. Continue supportive care and discomfort management 5. Continue IV antibiotics. 6. Continued G.I. and DVT prophylaxis 7. Ambulate and holds at least TID and incentive spirometry 10 times Q hour while awake 8. Replace electrolytes as indicated (2) Pulmonary nodule Status: Chronic Follow-up with pulmonology as an outpatient (3) HTN (hypertension) Status: Chronic Continue current medication Qualifiers: Hypertension type: essential hypertension Qualified Code(s): I10 - Essential (primary) hypertension (4) HLD (hyperlipidemia) Status: Chronic Qualifiers: Hyperlipidemia type: unspecified Qualified Code(s): E78.5 - Hyperlipidemia , unspecified (5) Obese Status: Acute follow up outpatient Qualifiers: Body mass index: BMI 36.0-36.9 Qualified Code(s): E66.9 - Obesity, unspecified; Z68.36 - Body mass index (BMI) 36.0-36.9, adult; Z68.36 - Body mass index (BMI) 36.0-36.9, adult Subjective Patient reports: no new complaints, feels better, tolerating liquids well, no flatus, no bowel movement, afebrile Objective Vital Signs - Last 8 Hours Temp Pulse Resp BP Pulse Ox 07/27/17 07:13 98.3 F 70 16 113/70 96 07/27/17 04:23 98.3 F 77 14 116/77 97 Intake and Output 07/26/17 07/27/17 07/27/17 23:59 07:59 15:59 Intake Total 460 / 460 400 / 400 Output Total 100 / 100 0 / 0 150 / 150 Balance 360 / 360 400 / 400 -150 / -150 Intake: IV Fluids 460 / 460 400 / 400 Cipro Premix 400 MG/200 ML 400 200 / 200 mg In 200 ml @ 200 mls/hr IVPB Q12H [facility] Rx#:[id number] Flagyl Premix 500 MG/100 ML 500 200 / 200 200 / 200 mg In 100 ml @ 100 mls/hr IVPB Q6H [facility] Rx#:[id number] Potassium Phosphate 44 MEQ In 0 60 / 60 200 / 200 .9 % Sodium Chloride 250 ML @ 40 mls/hr IVPB ONCE ONE Rx#: [id number] Oral 0 / 0 0 / 0 Output: Urine 100 / 100 0 / 0 150 / 150 Other: Meal Dinner Percent of Meal Consumed 45% # Voids 1 # Bowel Movements 0 Weight 83.915 kg Patient Weight 07/27/17 23:59 Weight 83.915 kg - General physical appearance well developed, well nourished, no distress, severe distress - ENT no hearing loss, no congestion - Respiratory normal expansion, normal respiratory effort, clear to percussion, clear to auscultation - Cardiovascular Cardiovascular exam: Present: RRR - Abdomen Abdomen: Present: bowel sounds present, soft, non tender. Absent: tympanic, distended, guarding, rebound - Integumentary no rash, no growths, no abnormal pigmentation - Psychiatric oriented to time, oriented to person, oriented to place, speech is normal, memory intact - Labs 07/27/17 05:15 07/27/17 05:15 Diabetes panel 07/27/17 Range/Units 05:15 Sodium 138 (136-145) mEq/L Potassium 3.6 (3.5-5.1) mEq/L Chloride 110 H (98-107) mEq/L Carbon Dioxide 22 L (23-29) mEq/L BUN 15 (8-23) mg/dL Creatinine 0.58 L (0.60-1.20) mg/dL Glucose 95 (70-105) mg/dL Calcium 8.1 L (8.6-10.3) mg/dL Calcium panel 07/27/17 Range/Units 05:15 Calcium 8.1 L (8.6-10.3) mg/dL Phosphorus 2.1 L (2.7-4.5) mg/dL Pituitary panel 07/27/17 Range/Units 05:15 Sodium 138 (136-145) mEq/L Potassium 3.6 (3.5-5.1) mEq/L Chloride 110 H (98-107) mEq/L Carbon Dioxide 22 L (23-29) mEq/L BUN 15 (8-23) mg/dL Creatinine 0.58 L (0.60-1.20) mg/dL Glucose 95 (70-105) mg/dL Calcium 8.1 L (8.6-10.3) mg/dL Adrenal panel 07/27/17 Range/Units 05:15 Sodium 138 (136-145) mEq/L Potassium 3.6 (3.5-5.1) mEq/L Chloride 110 H (98-107) mEq/L Carbon Dioxide 22 L (23-29) mEq/L BUN 15 (8-23) mg/dL Creatinine 0.58 L (0.60-1.20) mg/dL Glucose 95 (70-105) mg/dL Calcium 8.1 L (8.6-10.3) mg/dL Consult Discharge Plan - Plan Instructions: Diverticulitis (DC), Low Fiber Diet (GEN) Referrals: Fernanda Lozoya MD [Partnered Physician] - (hospital follow-up; discuss interval colonoscopy) Li Silva MD [Partnered Physician] - (needs follow up 2 weeks after discharge to establish care to follow left lower lobe pulmonary nodule) Conrado Beck DO [Primary Care Provider] - Prescriptions: Ciprofloxacin HCl [Cipro] 500 mg PO BID #20 tablet metroNIDAZOLE [Flagyl] 500 mg PO TID #30 tablet <Fernanda Lozoya - Last Filed: 07/27/17 16:28> Date of Encounter: 07/27/17 - Assessment and Plan (1) Diverticulitis Status: Acute (2) HLD (hyperlipidemia) Status: Chronic Qualifiers: Hyperlipidemia type: unspecified Qualified Code(s): E78.5 - Hyperlipidemia , unspecified (3) HTN (hypertension) Status: Chronic Qualifiers: Hypertension type: essential hypertension Qualified Code(s): I10 - Essential (primary) hypertension (4) Perforated diverticulum Status: Acute (5) Pulmonary nodule Status: Chronic (6) Hypophosphatemia Status: Acute (7) Hypokalemia Status: Acute Objective Intake and Output 07/27/17 07/27/17 07/27/17 07:59 15:59 23:59 Intake Total 400 / 400 720 / 720 Output Total 0 / 0 150 / 150 Balance 400 / 400 570 / 570 Intake: IV Fluids 400 / 400 Flagyl Premix 500 MG/100 ML 500 200 / 200 mg In 100 ml @ 100 mls/hr IVPB Q6H [facility] Rx#:[id number] Potassium Phosphate 44 MEQ In 0 200 / 200 .9 % Sodium Chloride 250 ML @ 40 mls/hr IVPB ONCE ONE Rx#: [id number] Oral 0 / 0 720 / 720 Output: Urine 0 / 0 150 / 150 Other: Meal Lunch Percent of Meal Consumed 0% # Bowel Movements 0 Weight 83.915 kg Patient Weight 07/27/17 23:59 Weight 83.915 kg - Labs 07/27/17 05:15 07/27/17 05:15 Diabetes panel 07/27/17 Range/Units 05:15 Sodium 138 (136-145) mEq/L Potassium 3.6 (3.5-5.1) mEq/L Chloride 110 H (98-107) mEq/L Carbon Dioxide 22 L (23-29) mEq/L BUN 15 (8-23) mg/dL Creatinine 0.58 L (0.60-1.20) mg/dL Glucose 95 (70-105) mg/dL Calcium 8.1 L (8.6-10.3) mg/dL Calcium panel 07/27/17 Range/Units 05:15 Calcium 8.1 L (8.6-10.3) mg/dL Phosphorus 2.1 L (2.7-4.5) mg/dL Pituitary panel 07/27/17 Range/Units 05:15 Sodium 138 (136-145) mEq/L Potassium 3.6 (3.5-5.1) mEq/L Chloride 110 H (98-107) mEq/L Carbon Dioxide 22 L (23-29) mEq/L BUN 15 (8-23) mg/dL Creatinine 0.58 L (0.60-1.20) mg/dL Glucose 95 (70-105) mg/dL Calcium 8.1 L (8.6-10.3) mg/dL Adrenal panel 07/27/17 Range/Units 05:15 Sodium 138 (136-145) mEq/L Potassium 3.6 (3.5-5.1) mEq/L Chloride 110 H (98-107) mEq/L Carbon Dioxide 22 L (23-29) mEq/L BUN 15 (8-23) mg/dL Creatinine 0.58 L (0.60-1.20) mg/dL Glucose 95 (70-105) mg/dL Calcium 8.1 L (8.6-10.3) mg/dL - Attending Attestation please cancel note it was done in error by resident who should have never done progress note as 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
--- NOTE | 2017-07-27 10:24 | Discharge Summary ---
Date of Encounter: 07/27/17 Time of Encounter: 10:15 - Discharge Diagnosis (1) Perforated diverticulum Priority: Primary Status: Acute (2) Pulmonary nodule Priority: Secondary Status: Chronic (3) Obese Priority: Secondary Status: Chronic Qualifiers: Obesity type: due to excess calories Obesity classification: adult class 2 (BMI 35 - 39.9) Serious obesity comorbidity presence: without serious comorbidity Body mass index: BMI 36.0-36.9 Qualified Code(s): E66.09 - Other obesity due to excess calories; Z68.36 - Body mass index (BMI) 36.0-36.9, adult; Z68.36 - Body mass index (BMI) 36.0-36.9, adult (4) HTN (hypertension) Priority: Secondary Status: Chronic Qualifiers: Hypertension type: essential hypertension Qualified Code(s): I10 - Essential (primary) hypertension (5) HLD (hyperlipidemia) Priority: Secondary Status: Chronic Qualifiers: Hyperlipidemia type: unspecified Qualified Code(s): E78.5 - Hyperlipidemia , unspecified - Discharge Medications Prescriptions: Ciprofloxacin HCl [Cipro] 500 mg PO BID #20 tablet metroNIDAZOLE [Flagyl] 500 mg PO TID #30 tablet Home Medications: Albuterol Sulfate [Proair Hfa] 2 puff IH Q4H PRN 07/23/17 [History] Atorvastatin [Lipitor] 40 mg PO HS 07/23/17 [History] L. Acidophilus/Pectin, [place] [Acidophilus Probiotic Capsule] 1 each PO DAILY [History] Mometasone Furoate [Nasonex] 1 spray NS BID PRN 07/23/17 [History] Ranitidine HCl [Zantac] 150 mg PO BID PRN 07/23/17 [History] Valsartan/Hydrochlorothiazide [Diovan Hct 160-25 mg Tablet] 1 each PO DAILY 03/02 [History] Ciprofloxacin HCl [Cipro] 500 mg PO BID #20 tablet 07/27/17 [Rx] metroNIDAZOLE [Flagyl] 500 mg PO TID #30 tablet 07/27/17 [Rx] Allergies/Adverse Reactions: 3 Allergy/AdvReac Type Severity Reaction Status Date / Time No Known Allergies Allergy Verified 07/23/17 17:39 General Surgery Exam Initial Vital Signs Temp Pulse Resp BP Pulse Ox 100.6 F H 108 18 116/77 95 07/23/17 17:36 07/23/17 17:36 07/23/17 17:36 07/23/17 17:36 07/23/17 17:36 - General physical appearance well developed, well nourished, no distress, no pain - Eyes normal ocular movement - ENT normal mucosa, atraumatic, normocephalic - Neck trachea midline - Respiratory normal respiratory effort, clear to auscultation - Cardiovascular Cardiovascular exam: Present: RRR - Abdomen Abdomen general surgery: Present: bowel sounds present, soft, non tender - Integumentary Integumentary general surgery: Present: warm and dry - Neurologic Present: CN 2-12 grossly intact - Musculoskeletal Present: normal gait, normal posture - Psychiatric Psychiatric general surgery: Present: appropriate, oriented to person, oriented to place, oriented to time, speech is normal, memory intact Date of admission: 07/24/17 14:23 Primary care physician: Conrado Beck DO Discharging clinician: Fernanda Lozoya ([facility]ly [facility], [facility]) Anticipated date of discharge: 07/27/17 - Patient Status Disposition: Home, Self-Care Condition: Good Functional capacity at discharge: independent ambulation - Discharge Instructions Instructions: Low Fiber Diet (GEN) Follow Up With: Conrado Beck DO [Primary Care Provider] - Li Silva MD [Partnered Physician] - (needs follow up 2 weeks after discharge to establish care to follow left lower lobe pulmonary nodule) Fernanda Lozoya MD [Partnered Physician] - (hospital follow-up; discuss interval colonoscopy) - Diet and Activity Activity: increase activity as tolerated Diet: other (Low fiber diet for the next 6-8 weeks) - Hospital Course Hospital course: Ms. Salinas is a 66 year old female who presented to the hospital with acute onset of abdominal pain. Her workup revealed diverticulitis with microperforation. She was admitted to the hospital and initiated on conservative measures including bowel rest, IV antibiotics, IV fluids, pain control. The patient has improved with conservative measures. She was started on a clear liquid diet and has tolerated this without difficulty. We will advance her to full liquids and then to low-residue diet. Her vital signs are stable and she is afebrile. Her white count has returned to normal. She denies any abdominal pain. She is voiding without difficulty. We will begin discharge planed to home and plan for outpatient follow-up in the next 10-14 days. We will plan for a subsequent interval colonoscopy in 6-[address] Lozoya. - Time Spent with Patient Total time spent providing and/or coordinating discharge services: Less than 30 minutes Labs on day of discharge: Labs from last 24 hours 07/27/17 07/27/17 05:15 05:15 WBC 6.1 RBC 3.33 L Hgb 9.9 L Hct 29.9 L MCV 89.8 MCH 29.7 MCHC 33.1 RDW 13.8 Plt Count 187 MPV 10.7 Immature Gran % 0.7 Seg Neutrophils % 70.0 Lymphocytes % 16.5 Monocytes % 8.8 Eosinophils % 3.8 Basophils % 0.2 Neutrophils # 4.3 Lymphocytes # 1.0 Monocytes # 0.5 Eosinophils # 0.2 Basophils # 0.0 Nucleated RBCs/100 WBC 0.3 H Sodium 138 Potassium 3.6 Chloride 110 H Carbon Dioxide 22 L BUN 15 Creatinine 0.58 L Est GFR ( Amer) > 60 Est GFR (Non-Af Amer) > 60 BUN/Creatinine Ratio 26 Glucose 95 Calculated Osmolality 287 Calcium 8.1 L Phosphorus 2.1 L Magnesium 1.8
== END 2017-07-27 14:00 | disposition home or self-care (01) | DRG 392 ==
LOC: EMEROO 17:22 → 3ANU 21:35 → INTOOBSV 21:35 → 3ANU 22:44
PROVIDERS: ADMIT Surgery; ATTEND Surgery